=== PATIENT | male | born 2005 | race Caucasian/White ===

== ENCOUNTER 2025-02-26 08:54 | Emergency (ER) | payer OTHER, SELFPAY ==
[2025-02-26 09:00] VITALS: BP 120/59; PULSE 69; RESP 18; TEMP 36.6; O2SAT 99; BMI 19.0
--- NOTE | 2025-02-26 09:06 | PC.NURSE ---
Mom and Aunt present at triage, family made this rn aware that patient has a suicide note on he phone
--- NOTE | 2025-02-26 09:21 | ED_ITS ---
HPI - General Adult General Chief complaint: Psychiatric Symptoms Stated complaint: SI Time Seen by Provider: 02/26/25 09:21 History of Present Illness ED Provider: Dieudonne GONZALEZ narrative: The patient is a 19-year-old male. He says that he thinks he has a history of depression because he has been prescribed a citalopram by his general supervisor in the past but he does not know if he has actually been given that diagnosis. He has been feeling very despondent recently. He works nights at [employer]. 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 He says that he works long hours and he comes home late and he feels that he comes home to a sense of emptiness. He has had thoughts about harming himself. He has had thoughts about hitting his head against a wall. He has not actually done anything to harm himself. He has not overdosed on anything or injured himself in any way. Today his mother encouraged him to come to the emergency room for evaluation. He has had no fever, sweats, chills or other medical symptoms. Related Data Home Medications ?Medication ?Instructions ?Recorded ?Confirmed No Known Home Meds 02/26/25 02/26/25 Allergies Allergy/AdvReac Type Severity Reaction Status Date / Time Penicillins Allergy Anaphylaxis Verified 02/26/25 09:02 Review of Systems 2 Review of Systems: Yes all other systems are reviewed and are negative [facility] Social History Social History Advance Directives: No Advance Directives Information Provided: No Do you have a plan to hurt others: No Plan Physical Exam ED Vital Signs: Vital Signs - 24 hr 02/26/25 09:00 02/26/25 09:38 Temperature 97.8 F 97.8 F Pulse Rate 69 69 Respiratory Rate 18 18 Blood Pressure 120/59 L 120/59 L Pulse Oximetry 99 Oxygen Delivery Method Room Air BMI result Body Mass Index 19.0 Const Other: The patient is well-groomed, healthy looking 19-year-old. He does not seem in any distress. Orientation/consciousness: patient oriented x3 HENMT Other: The face is symmetrical. ?Mucous membranes moist. Eyes Other: Pupils are round equal, conjunctivae are clear, extraocular movements intact Neck Neck: Yes normal visual inspection and Yes full ROM Resp Effort & Inspection: normal respiratory effort Auscultation: clear to auscultation bilaterally Cardio Rate: regular rate Rhythm: regular rhythm Heart sounds: S1 normal heart sound present and S2 normal heart sound present GI Other: Abdomen is soft and nontender Skin Other: The skin is dry and unremarkable Neuro General: patient oriented x3, gait normal, tone normal, moves all extremities, no focal motor deficits and CN's II-XI intact bilaterally Extrem Other: There is no calf swelling or tenderness. No asymmetry. No peripheral edema. Medical Decision Making Medical Decision Making [facility] Narrative: The patient is a 19-year-old male who may have some kind of a history of mild depression in the past who has been feeling increasingly despondent recently, possibly because of to satisfaction with his work, possibly because of some other to satisfaction. He has some thoughts of self-harm but he does not seem frankly suicidal. I think he is medically clear and can be evaluated by the care team for additional recommendations. The patient was seen by me initially medically cleared. The patient was later seen by a member of the care team who did not feel the patient required hospitalization. I agree. The patient seems a good candidate for outpatient referrals. The patient will be referred to a partial hospitalization program. The patient seems comfortable with the prospect of being discharged. There does not seem to be a significant risk of self-harm at the moment. Lab Data 02/26/25 10:10 02/26/25 10:10 Labs: Lab Results 02/26/25 Range/Units 10:10 WBC 8.4 (4.8-10.8) X10*3/uL RBC 5.10 (4.60-5.80) X10*6/uL Hgb 14.9 (14.0-18.0) g/dl Hct 46.1 (42.0-52.0) % MCV 90.4 (80.0-98.0) fL MCH 29.2 (27.0-33.0) pg MCHC 32.3 (31.0-36.0) g/dl RDW 12.5 (11.0-16.0) % Plt Count 287 (160-400) X10*3/uL MPV 9.4 (9.4-12.4) fL Immature Gran % (Auto) 0.1 (0.0-0.4) % Neut % (Auto) 76.8 H (45-73) % Lymph % (Auto) 14.9 L (20-40) % Calvert % (Auto) 4.5 (2-11) % Eos % (Auto) 3.3 (0-4) % Baso % (Auto) 0.4 (0-2) % Lymph # (Auto) 1.3 (1.2-4.9) X10*3/uL Calvert # (Auto) 0.4 (0.1-1.2) X10*3/uL Eos # (Auto) 0.3 (0.0-0.4) X10*3/uL Baso # (Auto) 0.0 (0.0-0.2) X10*3/uL Abs Immat Gran (auto) 0.01 (0.00-0.03) X10*3/uL Absolute Neuts (auto) 6.4 (2.0-8.3) x10*3/uL Absolute Nucleated RBC 0.000 (0.0-0.012) X10*3/uL Nucleated RBC % (auto) 0.0 (0.0-0.2) /100WBC Sodium 140 (135-145) mmol/L Potassium 3.9 (3.3-5.1) mmol/L Chloride 107 (96-108) mmol/L Carbon Dioxide 25 (22-29) mmol/L Anion Gap 12 (12-20) BUN 8 L (9-16) mg/dL Creatinine 0.75 (0.5-1.4) mg/dL Estim Creat Clear Calc 125.9 Estimated GFR > 60 Random Glucose 118 H (60-115) mg/dL Calcium 9.6 (8.4-10.2) mg/dL Total Bilirubin 0.8 (0.0-1.0) mg/dL AST 28 (5-37) U/L ALT 25 (0-40) U/L Alkaline Phosphatase 93 (39-117) U/L Total Protein 7.4 (6.5-8.0) g/dL Albumin 5.0 (3.5-5.0) g/dL Ethyl Alcohol 10 mg/dL Discharge Plan Discharge Clinical Impression: Dysthymia Patient Disposition: Home, Self-Care Additional Instructions: You should be getting additional referral information for possible outpatient services that might be helpful if you choose to pursue them. Please follow up with your regular primary care doctor as well. If you have trouble finding a therapist you can reach out to [place] [phone] The National Suicide and Crisis Lifeline can be reached 7 days a week 24 hours a day.? If you are feeling particularly hopeless or sad please call 988 to speak with someone.? Return for any worsening symptoms or concerns such as thoughts of self harm or harm to others. Please call 911 if you feel your mental health is worsening.? Prescriptions: No Action No Known Home Meds Referrals: [facility] [Provider Group] Lalo Delgadillo PA-C [Primary Care Provider, Internal Medicine] Stand Alone Forms: Work/School Release Interventions: [place]-Suicide Risk Severity Scale Last Done: 02/26/25 09:35 Discharge Date/Time: 02/26/25 12:30 Print Language: Divehi
[2025-02-26 09:38] VITALS: BP 120/59; PULSE 69; RESP 18; TEMP 36.6
--- NOTE | 2025-02-26 09:38 | PC.NURSE ---
Asim Connolly [phone] Aunt Ruth [phone]
[2025-02-26 10:18] LABS: MANUAL DIFF FLAG NO
[2025-02-26 10:26] LABS: Hematocrit 46.1 % (42.0-52.0); Hemoglobin 14.9 g/dl (14.0-18.0); Imm Gran Abs Auto 0.01 X10*3/uL (0.00-0.03); Imm Gran Pct Auto 0.1 % (0.0-0.4); Lymphocytes Absolute Auto 1.3 X10*3/uL (1.2-4.9); Mean Corpuscular HGB Conc 32.3 g/dl (31.0-36.0); Mean Corpuscular Hemoglobin 29.2 pg (27.0-33.0); Mean Corpuscular Volume 90.4 fL (80.0-98.0); NRBC Abs Auto 0.000 X10*3/uL (0.0-0.012); NRBC Pct Auto 0.0 /100WBC (0.0-0.2); Platelet Count 287 X10*3/uL (160-400); Red Blood Count 5.10 X10*6/uL (4.60-5.80); White Blood Count 8.4 X10*3/uL (4.8-10.8)
[2025-02-26 10:32] LABS: Alanine Aminotransferase 25 U/L (0-40); Albumin Level 5.0 g/dL (3.5-5.0); Alkaline Phosphatase 93 U/L (39-117); Anion Gap 12 (12-20); Aspartate Amino Transferase 28 U/L (5-37); Blood Urea Nitrogen 8 mg/dL (9-16); Calcium 9.6 mg/dL (8.4-10.2); Carbon Dioxide 25 mmol/L (22-29); Chloride 107 mmol/L (96-108); Creatinine Clr Calc Pharmacy 125.9; Estimated Glomerular Filt Rate > 60; Potassium 3.9 mmol/L (3.3-5.1); Sodium 140 mmol/L (135-145); Total Protein 7.4 g/dL (6.5-8.0)
--- OUTSIDE RECORDS SUMMARY | 2025-02-26 11:09 | XMS_ITS | Clinical Summary ---
Author Organization [facility] Address [address] [place] [address] Phone Care Team Providers Care Vice President And Portfolio Manager Name Role Phone Unavailable Primary Care Provider Unavailabl e Social History Tobacco Use Types Packs/Day Years Used Date Smoking Tobacco: Never Assessed Sex and Gender Information Value Date Recorded Sex Assigned at Not on file Legal Sex Male 5:16 PM EDT Gender Identity Not on file Sexual Orientation Not on file Plan of Treatment Health Maintenance Due Date Last Done Comments Chlamydia and Gonorrhea Screening 2004 HIV Screening 2004 MMR Vaccines (1 of 1 - Standard series) 2005 HPV Vaccines (3 - Male 2-dose series) 08/14/2016 05/22/2016, 01/17/2016 Varicella Vaccines (1 of 2 - 13+ 2-dose series) 2017 Meningococcal B Vaccine (1 of 2 - Standard) 2020 Hepatitis C Screening 2022 Hepatitis B Vaccines (1 of 3 - 19+ 3-dose series) 07/27/2023 DTaP/Tdap/Td Vaccines (2 - Td or Tdap) 03/28/2024 02/29/2024 Influenza Vaccine (#1) 2024 2, 01/07/2020, 01/26/2019, Additional history exists Hepatitis A Vaccines Completed 07/25/2020, 01/27/20 19 Meningococcal Vaccine Completed 07/25/2020 HIB Vaccines Aged Out No longer eligi ble based on patient's age to complete this topic IPV Vaccines Aged Out No longer eligi ble based on patient's age to complete this topic Pneumococcal Vaccine: Pediatrics (0 to 5 Years) and At-Risk Patients (6 to 49 Years) Aged Out No longer eligible based on patient's age to complete this topic Rotavirus Vaccines Aged Out No longer eligible based on patient's age to complete this topic Insurance [facility]
--- OUTSIDE RECORDS SUMMARY | 2025-02-26 11:09 | XMS_ITS | Encounter Summary ---
Author Organization [facility] Address [address] [place] [phone] Phone Care Team Providers Care Chief Arson Division Name Role Phone Naresh Kyle MD Primary Care Provider [phone] Encounter Details Date Type Department Care Team (Latest Contact Info) Description 12/05/2018 Transcribe Orders [facility] [address] [place] [address] Aren Whiting, PA [address] [place] [address] [email or web address] Encounter for long-term (current) use of other medications (Primary Dx) Social History Tobacco Use Types Packs/Day Years Used Date Smoking Tobacco: Never Assessed Sex and Gender Information Value Date Recorded Sex Assigned at Not on file Legal Sex Male 4:46 PM EDT Gender Identity Not on file Sexual Orientation Not on file documented as of this encounter Plan of Treatment Not on file documented as of this encounter Results * Comprehensive metabolic panel (12/05/2018 1:40 PM EDT) SODIUM 142 133 - 146 mmol/L [facility] POTASSIUM 4.1 3.3 - 5.1 mmol/L [facility] CHLORIDE 103 96 - 108 mmol/L [facility] CO2 28 21 - 35 mmol/L [facility] BUN 8 6 - 19 mg/dL [facility] CREATININE 0.80 0.5 - 1.5 mg/dL [facility] GLUCOSE 98 70 - 99 mg/dL [facility] ALBUMIN 4.8 3.9 - 4.8 g/dL [facility] TOTAL PROTEIN 7.6 6.5 - 8.0 g/dL [facility] CALCIUM 10.0 8.4 - 10.3 mg/dL [facility] ALKALINE PHOSPHATASE 211 117 - 390 U/L [facility] Comment: Growing children can transiently show ALKPHOS activity up to 700 U/L TOTAL BILIRUBIN 0.6 0.0 - 1.0 mg/dL [facility] AST 24 0 - 37 U/L [facility] ALT 17 0 - 40 U/L [facility] GLOBULIN 2.8 1 - 4.8 g/dL [facility] EGFR Estimated GFR not calculated for patients <18 years old. mL/min/1. 73m2 [facility] ANION GAP 15 10 - 20 mmol/L [facility] Blood 12/05/2018 1:40 PM EDT 12/05/2018 1:44 PM EDT us Aren ALVES LAB BLOOD ORDERABLES Final Result Performing Organization Address City/State/[facility] Co de Phone Number [facility] [address] [place] [address] documented in this encounter Visit Diagnoses Diagnosis Encounter for long-term (current) use of other medications- Primary documented in this encounter Care Teams Chief Arson Division Relationship Specialty Start Date End Date Naresh Kyle MD [address], [address] [place] [address] [email or web address] PCP - General Pediatrics 12/05/18 documented as of this encounter Additional Source Comments The information contained in this document represents components of the legal health record. It is not the complete legal health record.[facility]
--- OUTSIDE RECORDS SUMMARY | 2025-02-26 11:09 | XMS_ITS | Clinical Summary ---
Author Organization [facility] Address [address] [place] [phone] Phone Care Team Providers Care Water Supply Engineer Name Role Phone Naresh Kyle MD Primary Care Provider [phone] Allergies Active Allergy Reactions Criticality Noted Date Comments Peanut 02/24/2018 Medications No known medications Active Problems No known active problems Encounters Date Type Department Care Team Description 02/09/2025 2:44 PM EDT - 02/09/2025 11:59 PM EDT Hospital Encounter [facility] [address] [place] [address] Chay Tolbert NP Discharge Disposition: Home or Self Care 02/09/2025 Transcribe Orders [facility] Specimen Processing [address] [place] [address] Chay Tolbetr NP Screening examination for venereal disease (Primary Dx) from Last 3 Months Social History Tobacco Use Types Packs/Day Years Used Date Smoking Tobacco: Never Assessed Education Answer Date Recorded Are you interested in more education? Not on mike e 08/24/2022 Are you concerned about learning? Not on file 08/24/2022 No 08/24/2022 No 08/24/2022 Digital Access Answer Date Recorded No 09/24/2022 No 09/24/2022 Reliable internet access at home? Not on file 09/24/2022 Device with a working camera? Not on file Sex and Gender Information Value Date Recorded Sex Assigned at Not on file Legal Sex Male 4:46 PM EDT Gender Identity Not on file Sexual Orientation Not on file Last Filed Vital Signs Vital Sign Reading Time Taken Comments Blood Pressure 113/67 02/24/2018 2:42 PM EDT Pulse 49 02/24/2018 2:42 PM EDT Temperature 36.8 C (98.2 F) 02/24/2018 2:42 PM EDT Respiratory Rate 22 02/24/2018 2:42 PM EDT Oxygen Saturation 98% 02/24/2018 2:42 PM EDT Inhaled Oxygen Concentration - - Weight 49.9 kg (110 lb) 02/24/2018 2:42 PM EDT Height 167.6 cm (5' 6 ) 02/24/2018 2:42 PM EDT Body Mass Index 17.75 02/24/2018 2:42 PM EDT Plan of Treatment Health Maintenance Due Date Last Done Comments DEVELOPMENTAL/BEHAVIORAL SCREENING (PHQ, PSC, or SWYC) 07/27/2007 DEPRESSION SCREENING 2016 SMOKING Hx and SMOKELESS TOBACCO SCREENING 2017 MENINGOCOCCAL VACCINES (B) (1 of 2 - Standard) 2020 HEPATITIS C SCREENING 2022 HIV ONE-TIME SCREENING (18-65 YEARS) 2022 INFLUENZA VACCINE (#1) 2024 , 01/26/2019, 02/26/2017, Additional history exists COVID-19 VACCINE (2024- season) 2024 12/22/2020, 12/01/2020 COMBINED DTaP,Tdap,Td (7 - Td or Tdap) 11/15/2025 11/16/2015, 08/23/2008, 03/08/2006, Additional history exists HIB VACCINES Completed 11/12/2005, 01/28, 2004, Additional history exists PNEUMOCOCCAL VACCINES (0-49 years) Aged Out 11/12/2005, 02/19/2005, 2004, Additional history exists No longer eligible based on patient's age to complete this topic MMR VACCINES Completed 08/29/2009, 09/03/2005 VARICELLA VACCINES Completed 08/29/2009, 08/03/2005 HPV VACCINES Completed 05/22/2016, 12/29, 11/16/2015 HEPATITIS A VACCINES Completed 07/25/2020, 01/27/20 19 MENINGOCOCCAL VACCINES (ACWY) Completed 07/25/2020, 11/16/2015 ADOLESCENT UNIVERSAL LIPID SCREENING Completed 10/26/2021 Medical Devices Not on file Procedures Procedure Name Priority Date/Time Associated Diagnosis Comments CHLAMYDIA TRACHOMATIS AND NEISSERIA GONORRHOEAE NUCLEIC ACID DETECTION Routine 02/09/2025 10:09 AM EDT Screening examination for venereal disease LIPID PANEL Routine 10/26/2021 2:57 PM EDT Encounter for screening for lipoid disorders from Last 3 Months or Most Recently Relevant to Health Maintenance Results * Chlamydia trachomatis and Neisseria gonorrhoeae Nucleic Acid Amplification (02/09/2025 10:09 AM EDT) CHLAMYDIA TRACHOMATIS Not Detected Not Detected [facility] NEISERIA GONORRHOEAE Not Detected Not Detected [facility] SPECIMEN TYPE URINE [facility] Urine (Urine) 02/09/2025 10: 09 AM EDT 02/09/2025 2:48 PM EDT Chay Tolbert NP NON CULTURE MICROBIOL OGY Final Result [facility] [address] [place] [address] * (ABNORMAL) Lipid panel (10/26/2021 2:57 PM EDT) HDL 44 mg/dL [facility] Comment: Interpretation <40 mg/dL: Low HDL cholesterol (major risk factor for CHD) Greater than or equal to 60 mg/dL: High HDL cholesterol ( negative risk factor for CHD) HDL - cholesterol is affected by a number of factors, e.g. smoking, excerise, hormones, sex and age. CHOLESTEROL 117 0 - 169 mg/dL [facility] Comment: Pediatric Reference Ranges for 2 to 18 years Acceptable: Less than 170 mg/dL Borderline: 170 - 199 mg/dL High: Greater than or equal to 200 mg/dL TRIGLYCERIDES 88 30 - 160 mg/dL [facility] LDL 55 50 - 129 mg/dL [facility] Comment: LDL levels in terms of risk for coronary heart disease: <100 mg/dL: Optimal 100-129 mg/dL: Near or above optimal 130-159 mg/dL: Borderline high 160-189 mg/dL: High >190 mg/dL: Very High CARDIAC RISK RATIO 2.7(L) 3.4 - 5.0 C [facility] 10/26/2021 2:57 PM EDT 10/26/2021 3:02 PM EDT Naresh Kyle MD LAB BLOOD ORDERABLES Final Result Performing Organization Address City/State/[facility] Co de Phone Number [address] [address] from Last 3 Months or Most Recently Relevant to Health Maintenance Insurance [facility] [place] [facility] Care Teams Water Supply Engineer Relationship Specialty Start Date End Date Naresh Kyle MD [address] [place] [address], [facility] [address] [place] [address] PCP - General Pediatrics 12/05/18 Additional Source Comments The information contained in this document represents components of the legal health record. It is not the complete legal health record.[facility]
--- NOTE | 2025-02-26 12:51 | MHC.CARE ---
Pt does not present as an imminent risk of meet the criteria for a higher level of care. Pt will be referred to PHP, provided with resources and discharge. ED provider in agreement.
--- NOTE | 2025-02-26 18:21 | MHC.CARE ---
RAD Team referred pt to PHP via email.
== END 2025-02-26 12:30 | disposition home or self-care (01) ==
PROVIDERS: Emergency Provider Emergency Medicine; PCP Physician Assistant
DX: F34.1 Dysthymic disorder (principal)
CPT/HCPCS: 36415; 80053; 80307; 85025; 99284; S9485